=== PATIENT | female | born 1985 | race Caucasian/White ===

== ENCOUNTER 2020-12-11 21:24 | Emergency (ER) | payer OTHER ==
[2020-12-13 21:12] LABS: CHLAMYDIA TRACHOMATIS, NAA Negative (Negative); NEISSERIA GONORRHOEAE, NAA Negative (Negative)
== END 2020-12-11 22:30 | disposition home or self-care (01) ==
LOC: ER1 21:24
PROVIDERS: Nurse Practitioner
DX: Z20.2 Contact with and (suspected) exposure to infections with a predominantly sexual mode of transmission (principal); R46.89 Other symptoms and signs involving appearance and behavior; E11.9 Type 2 diabetes mellitus without complications
CPT/HCPCS: 81001; 84703; 87086; 96372; 99283; J0561